=== PATIENT | female | born 1965 | race Caucasian/White ===

== ENCOUNTER → 2021-02-11 | Outpatient (CLI) | payer OTHER | LOC: EMI 08:00 | DX: M25.561 Pain in right knee (principal); M25.461 Effusion, right knee; H90.3 Sensorineural hearing loss, bilateral; R90.89 Other abnormal findings on diagnostic imaging of central nervous system; G31.9 Degenerative disease of nervous system, unspecified | CPT/HCPCS: 70553; 73721; A9577 ==

== ENCOUNTER → 2021-10-11 | Day surgery (SDC) | payer OTHER ==
[~2021-10-11] VITALS: Ht 165.1 cm; Wt 68.0 kg
[~2021-10-11] MED LIST: DEPAKOTE 250 M250 MG PO; FOSAMAX70 MG PO; HYDROCODON-ACE1 EAC2 PO; HYDROCODON-ACE1 EAC6 PO; KEPPRA750 MG PO; KLONOPIN1 MG PO; LEVOTHYROXINE50 MC1 PO; LEXAPRO10 MG PO; MELATONIN10 M2 PO; TOPAMAX25 M1 PO; VRAYLAR6 MG PO; ZOFRAN ODT 4 MG4 MG PO
[2021-10-11 09:55] LABS: HEMOGLOBIN 15.3 gm/dl (12.3-15.3); RED BLOOD COUNT 4.89 M/UL (4.00-5.10); WHITE BLOOD COUNT 8.1 K/UL (4.5-11.0)
[2021-10-11 10:20] LABS: BUN/CREATININE RATIO 10 (0-10)
== END | disposition home or self-care (01) ==
LOC: OR 09:03
PROVIDERS: Orthopaedic Surgery
DX: S82.852A Displaced trimalleolar fracture of left lower leg, initial encounter for closed fracture (principal); K21.9 Gastro-esophageal reflux disease without esophagitis; I25.10 Atherosclerotic heart disease of native coronary artery without angina pectoris; F17.210 Nicotine dependence, cigarettes, uncomplicated; R94.31 Abnormal electrocardiogram [ECG] [EKG]; M81.0 Age-related osteoporosis without current pathological fracture; E03.9 Hypothyroidism, unspecified; W19.XXXA Unspecified fall, initial encounter; Z88.5 Allergy status to narcotic agent; Z88.8 Allergy status to other drugs, medicaments and biological substances; Z98.51 Tubal ligation status; Z20.822 Contact with and (suspected) exposure to COVID-19
CPT/HCPCS: 71045; 73610; 76000; 80048; 85025; 93005; C1713; J0690; J1100; J2001; J2250; J2405; J2704; J2710; J2795; J3010; J7030; J7120